=== PATIENT | female | born 2000 | race Caucasian/White ===

== ENCOUNTER 2023-09-16 18:49 | Emergency (ER) | payer MEDICAID ==
[~2023-09-16] VITALS: Ht 160 cm; Wt 54.0 kg
[2023-09-16 18:59] VITALS: O2SAT 99
[2023-09-16] MEDS ORDERED: IBUP-2029 MT (20:35)
[2023-09-16] MEDS ORDERED: MENT8OIN TP (20:37)
[2023-09-16 21:07] VITALS: BP 122/49; PULSE 76; RESP 20; TEMP 98.5
== END 2023-09-16 21:10 | disposition home or self-care (01) ==
LOC: ER 18:49
DX: M25.522 Pain in left elbow (principal); M79.632 Pain in left forearm
CPT/HCPCS: 99281; 99282; A4565

== ENCOUNTER 2024-11-07 14:33 | Emergency (ER) | payer MEDICAID ==
[~2024-11-07] VITALS: Ht 160 cm; Wt 81.6 kg
[~2024-11-07 14:33] MED LIST: IBUP-2029 MT; MENT8OIN TP
[2024-11-07 14:43] VITALS: BP 119/79; TEMP 37.1; O2SAT 100
[2024-11-07 14:46] VITALS: PULSE 95; RESP 14; O2SAT 100
[2024-11-07] MEDS: KETOROLAC 30MG/ML VIAL IM STA (15:24)
== END 2024-11-07 16:09 | disposition home or self-care (01) ==
LOC: ER 14:33
DX: S60.512A Abrasion of left hand, initial encounter (principal); W23.2XXA Caught, crushed, jammed or pinched between a moving and stationary object, initial encounter; Y93.89 Activity, other specified; Y92.89 Other specified places as the place of occurrence of the external cause; Y99.8 Other external cause status
CPT/HCPCS: 99283; 73140; 96372; J1885